=== PATIENT | female | born 1950 | race Caucasian/White ===

== ENCOUNTER 2018-03-08 01:05 | Outpatient (CLI) | payer BC, SELFPAY ==
--- NOTE | 2018-03-08 13:00 | DI.MAMMO_ITS ---
SYMPTOM/DIAGNOSIS: SCREENING, Z12.31 MAMMOGRAMS: Mammograms were interpreted according to the usual protocol including computer analysis with CAD system, tomosynthesis and C view imaging. Comparison is made with exams from [id number]. The breasts are composed of scattered fibroglandular densities, breast density, Category C. No suspicious masses or suspicious microcalcifications are seen. There has been no significant change. IMPRESSION: Category 1B, negative mammogram. Yearly screening mammography is recommended. [facility] ASSESSMENT OF FINDINGS: Negative. Category 1. Patient will receive a letter notifying them of these results. BI-RADS category B. There are scattered areas of fibroglandular density.
== END 2018-03-08 01:25 ==
PROVIDERS: PCP Family Medicine; Visit Provider Family Medicine
DX: Z12.31 Encounter for screening mammogram for malignant neoplasm of breast (principal)
CPT/HCPCS: 77063; 77067

== ENCOUNTER 2018-04-22 01:44 | Outpatient (CLI) | payer BC, SELFPAY ==
[2018-04-22 08:22] LABS: ALT 32 U/L (12-78); AST 26 U/L (15-37); Albumin 3.8 g/dL (3.4-5.0); Alkaline Phosphatase 87 U/L (46-116); Anion Gap 6.6 mmol/L (3-11); BUN 18 mg/dL (7-18); Bilirubin, Total 0.4 mg/dL (0.2-1.0); CO2 30.4 mmol/L (21.0-32.0); CREATININE 0.89 mg/dL (0.55-1.02); Calcium 9.1 mg/dL (8.5-10.1); Chloride 103 mmol/L (98-107); Cholesterol 243 mg/dL (50-200); Glucose 86 mg/dL (70-100); HDL Cholesterol 58 mg/dL (40-60); LDL CHOLESTEROL 154 mg/dL (<100); Potassium 4.1 mmol/L (3.5-5.1); Sodium 140 mmol/L (136-145); Total Protein 7.5 g/dL (6.4-8.2); Triglyceride 99 mg/dL (30-150)
== END 2018-04-22 02:04 ==
PROVIDERS: PCP Family Medicine; Visit Provider Family Medicine
DX: Z00.00 Encounter for general adult medical examination without abnormal findings (principal); E78.5 Hyperlipidemia, unspecified
CPT/HCPCS: 36415; 80053; 80061; 83721

== ENCOUNTER 2018-05-11 11:16 | Emergency (ER) | payer BC, SELFPAY ==
[2018-05-11 11:25] VITALS: BP 115/89; PULSE 83; RESP 22; TEMP 36.7; O2SAT 99
[2018-05-11] MEDS: Normal Saline 1,000 ML 1000 ML IV (11:40)
[2018-05-11 11:43] LABS: Abs Immature Grans 0.03 k/cumm (0.0-0.09); Absolute Basophil Count 0.02 k/cumm (0.0-0.2); Absolute Eosinophil Count 0.01 k/cumm (0.0-0.7); Absolute Monocyte Count 0.41 k/cumm (0.11-0.7); Absolute Neutrophil Count 10.78 k/cumm (1.2-6.7); Basophils % 0.2; Eosinophils % 0.1; HCT 42.3 % (36.0-46.0); HGB 14.7 g/dL (12.0-15.5); Immature Grans % 0.2; Lymphocytes % 6.6; Mean Corp. HGB Concentration 34.8 g/dL (32.0-36.0); Mean Corpuscular Hemoglobin 29.8 pg (27.0-33.0); Mean Corpuscular Volume 85.6 fL (80-95); Mean Platelet Volume 10.2 fL (8.0-11.0); Monocytes % 3.4; Neutrophils % 89.5; Platelet Count 227 x1000/uL (130-400); RBC 4.94 m/cumm (4.00-5.20); RBC Distribution Width 13.4 % (11.7-14.6); White Blood Cell Count 12.05 k/cumm (4.4-10.8)
[2018-05-11] MEDS: Ketorolac 15 MG/ML VIAL IVP (11:45)
[2018-05-11] MEDS: Ondansetron 4 MG/2 ML VIAL IVP (11:48)
[2018-05-11 12:02] LABS: ALT 36 U/L (12-78); AST 37 U/L (15-37); Alkaline Phosphatase 90 U/L (46-116); Anion Gap 12.6 mmol/L (3-11); BUN 24 mg/dL (7-18); Bilirubin, Total 0.5 mg/dL (0.2-1.0); CO2 25.4 mmol/L (21.0-32.0); CREATININE 1.26 mg/dL (0.55-1.02); Calcium 9.9 mg/dL (8.5-10.1); Chloride 101 mmol/L (98-107); Estimated GFR 42.62 (mL/min/1.73m2); Glucose 136 mg/dL (70-100); Lipase 119 U/L (73-393); Potassium 4.1 mmol/L (3.5-5.1); Sodium 139 mmol/L (136-145); Total Protein 8.1 g/dL (6.4-8.2)
[2018-05-11 12:10] LABS: Bilirubin Negative (Negative); Blood Negative (Negative); Clarity Clear; Glucose Negative (Negative); Ketones 15 mg/dL (Negative); Leukocyte Esterase Negative (Negative); Nitrite Negative (Negative); Specific Gravity 1.015 (1.005-1.025); Urobilinogen 0.2 EU/dL (Up TO 0.2); pH 8.5 (5-8)
--- NOTE | 2018-05-11 12:13 | DI.CT_ITS ---
SYMPTOMS/DIAGNOSIS: LEFT LOWER QUADRANT PAIN, ? URETERAL CALCULI VS DIVERTICULA NONCONTRAST CT OF THE ABDOMEN AND PELVIS: There are no prior comparison exams. There is moderate left hydronephrosis. A tiny calcification is seen at the ureterovesical junction measuring 1-2 mm. There is mild left perinephric stranding and mild left renal enlargement. No additional urinary tract calculi are seen. A cyst is noted at the lower pole of the right kidney. The patient is status post hysterectomy. The bladder is unremarkable. Coronary artery calcifications are seen. The lung bases show minimal dependent changes. The liver, gallbladder, spleen, adrenals and pancreas are unremarkable. There is a question of a small hiatal hernia. The aorta is normal in diameter and shows mild calcification. There is a normal quantity of stool. The appendix appears normal. No bowel dilatation or inflammatory changes are seen. There are mild degenerative disc changes in the spine. IMPRESSION: Moderate left hydronephrosis secondary to a 1-2 mm stone at the ureterovesical junction.
--- NOTE | 2018-05-11 13:02 | NUR.NOTE ---
Nursing Note: Patient has a compliant of worsening pain/ pain is returning.
[2018-05-11] MEDS: MORPHine 10 MG/ML VIAL 4 MG IVP (13:21)
--- NOTE | 2018-05-11 14:47 | W.ED.GENAD ---
Discharge Plan Disposition Patient Disposition: HOME Condition: Improving Discharge Details Chief Complaint: Abd Prob Clinical Impression: Left ureteral stone Primary Care Provider: Stephanie House ED Provider: Joe Franz Home Meds and New Rx's Prescriptions: New hydrocodone-acetaminophen 5-325 mg tablet 1 tab PO Q6H PRN (Reason: pain) Qty: 2 RF: 0 Continued multivitamin [Daily Multi-Vitamin] 1 EACH tablet 1 ea PO DAILY Qty: 1 RF: 0 magnesium oxide 250 MG tablet 250 mg PO BID RF: 0 vitamin E (dl, acetate) 400 UNIT capsule 400 unit PO DAILY RF: 0 Fish Oil 1 EACH capsule 1 ea PO DAILY RF: 0 nystatin 15 GM cream 1 gm Topical BID PRNQty: 15 RF: 3 acetaminophen [Tylenol] 325 MG tablet 650 mg PO PRN PRNRF: 0 Discharge Instructions Instructions: Kidney Stones (ED) Additional Instructions: Take acetaminophen/Tylenol or prescribed pain medication as needed for discomfort. Continue to stay well-hydrated and follow-up with urologist as needed for reassessment. Stand Alone Forms: Work Release Referrals: Dave Angel MD [ [facility] STAFF PHYSICIAN] - (Call the office if not improving in the next 24-48 hours) Discharge Data Discharge Date/Time-TO BE ENTERED AT DEPARTURE: 05/11/18 15:12 Medical Decision Making Patient presenting the emergency department for chief complaint of left lower abdominal pain. Patient states mild back pain that precipitated initial pain episode. Patient has significant tenderness to left lower quadrant along with left CVA tenderness. Differential to include ureteral calculi versus diverticulitis. Plan to do labs and CT imaging. Patient given IV fluids, ketorolac pending results. Labs reviewed and show a nonspecific leukocytosis along with decreased renal function which I feel is secondary to possible dehydration. Patient continued to have pain after CT imaging was given for morphine. After CT patient given another bag of IV fluids. CT image shows a small 2 mm ureteral stone at the UVJ. While patient was in emergency department finishing fluids she did have to urinate and passed what appears to be a 2 mm stone. Patient was given limited supply of Vicodin for any further pain control as she still states moderate discomfort. Patient did pass stone she was informed to contact urology if she continued to have discomfort. Close return precautions were discussed. After discussion of diagnosis and plan of care patient and family have no further needs, questions, or concerns and states clear understanding to return to the emergency department for any worsening symptoms. HPI General Mode of arrival: ambulatory. Date/Time Provider Initiated Documentation: 05/11/18 11:23. Limitations to Documentation: no limitations. Information obtained by: patient, family and RN notes reviewed. History of Present Illness described as severe, with intensity rated at 9. Quality is described as sharp, and is localized to the abdomen (LLQ). Patient started experiencing this hour(s) (4) and it has been constant. Patient did receive the following treatments prior to arrival, none Related Data Home Medications Medication Instructions Recorded Confirmed multivitamin [Daily Multi-Vitamin] 1 ea PO DAILY #1 09/21/12 02/23/18 magnesium oxide 250 mg PO BID 11/07/14 02/23/18 vitamin E (dl, acetate) 400 unit PO DAILY 11/07/14 02/23/18 Fish Oil 1 ea PO DAILY 02/03/17 02/23/18 nystatin 1 gm TOPICAL BID PRN #15 ml 02/03/17 02/23/18 acetaminophen [Tylenol] 650 mg PO PRN PRN 02/27/17 02/23/18 hydrocodone-acetaminophen 1 tab PO Q6H PRN #2 tab 05/11/18 Previous Rx's Medication Instructions Recorded hydrocodone-acetaminophen 1 tab PO Q6H PRN #2 tab 05/11/18 Allergies Allergy/AdvReac Type Severity Reaction Status Date / Time penicillin G Allergy Intermediate RASH Unverified 02/23/18 09:17 latex Allergy Unverified 02/23/18 09:17 General Stated Complaint: Abd Prob JUN: 2 Review of Systems Constitutional Reports chills, Denies fever(s) and Reports poor appetite Cardiovascular Denies chest pain and Denies dyspnea Respiratory Denies cough and Denies dyspnea Gastrointestinal Reports as per HPI, Reports abdominal pain, Denies melena, Denies change in bowel habits, Denies constipation, Denies diarrhea, Reports nausea and Reports vomiting Genitourinary Denies hematuria, Denies urinary incontinence, Denies urinary hesitancy and Denies urinary urgency Integumentary/Breasts Denies rash [facility] Medical History Skin lesion (Chronic 02/03/17) Other hemorrhoids (Chronic 09/24/17) Positive test for human papillomavirus (HPV) (Resolved) Routine gynecological examination (Resolved) DAVIAN II (cervical intraepithelial neoplasia II) Hyperlipidemia Surgical History Cervical Conization/LEEP (06/04/16) Dilation and curettage Vaginal hysterectomy (06/25/16) Family History Mother Substance abuse Essential hypertension Neoplasm Father Essential hypertension Heart disease Hyperlipidemia Brother Essential hypertension Hyperlipidemia Stroke Maternal Grandfather Heart disease Paternal Grandfather Heart disease Maternal Grandmother Heart disease Paternal Grandmother Diabetes Stroke Sister Substance abuse Neoplasm Brother No problems noted. Son No problems noted. Social History highest education level completed: Master's degree current occupational status: employed current occupation: [employer] frequency: 3-4 times per week duration: 45-60 minutes/day Smoking and Tabacco status: Former Tobacco Use alcohol intake: never substance use type: does not use francesca/congregational: Denominational special francesca needs: No Exam Const General: cooperative Orientation: alert, awake and oriented x3 Resp Effort & Inspection: normal respiratory effort and able to speak in complete sentences Auscultation: clear to auscultation bilaterally Cardio Rate: regular rate Rhythm: regular rhythm Heart Sounds: S1 normal and S2 normal GI Palpation: soft, no hepatosplenomegaly, not firm, no guarding, no masses, no pulsatile masses, not rigid, no splenomegaly and tender in the LLQ Auscultation: normal bowel sounds Back/Spine/Pelvis Back: CVA tenderness (left) Neuro General: alert, awake, oriented x3, gait normal and moves all extremities Course Vital Signs Temperature 36.7 C 05/11/18 11:25 Pulse 83 05/11/18 11:25 Respiratory Rate 22 05/11/18 11:25 Blood Pressure 115/89 05/11/18 11:25 Pulse Oximetry 99 05/11/18 11:25 Temperature 36.7 C 05/11/18 11:25 Temperature Source Temporal Artery Scan 05/11/18 11:25 Pulse 83 05/11/18 11:25 Respiratory Rate 22 05/11/18 11:25 Respiratory Effort Non-Labored 05/11/18 11:53 Blood Pressure 115/89 05/11/18 11:25 Blood Pressure Position Supine 05/11/18 11:25 Pulse Oximetry 99 05/11/18 11:25 Oxygen Delivery Method Room Air 05/11/18 11:25 Oxygen Flow Rate 0 05/11/18 11:25 Pain Level 9 05/11/18 11:25 Lab/Test Results Lab/Test Results: Laboratory Tests Range/Units 05/11/18 05/11/18 05/11/18 11:30 11:30 12:03 WBC (4.4-10.8) k/cumm 12.05 H RBC (4.00-5.20) m/cumm 4.94 Hgb (12.0-15.5) g/dL 14.7 Hct (36.0-46.0) % 42.3 MCV (80-95) fL 85.6 MCH (27.0-33.0) pg 29.8 MCHC (32.0-36.0) g/dL 34.8 RDW (11.7-14.6) % 13.4 Plt Count (130-400) x1000/uL 227 MPV (8.0-11.0) fL 10.2 Immature Gran % 0.2 Neutrophils % 89.5 Lymphocytes % 6.6 Monocytes % 3.4 Eosinophils % 0.1 Basophils % 0.2 Absolute Neutrophils (1.2-6.7) k/cumm 10.78 H Absolute Lymphocytes (1.2-3.4) k/cumm 0.80 L Absolute Monocytes (0.11-0.7) k/cumm 0.41 Absolute Eosinophils (0.0-0.7) k/cumm 0.01 Absolute Basophils (0.0-0.2) k/cumm 0.02 Sodium (136-145) mmol/L 139 Potassium (3.5-5.1) mmol/L 4.1 Chloride (98-107) mmol/L 101 Carbon Dioxide (21.0-32.0) mmol/L 25.4 Anion Gap (3-11) mmol/L 12.6 H BUN (7-18) mg/dL 24 H Creatinine (0.55-1.02) mg/dL 1.26 H Estimated GFR/1.73 m2 (mL/min/1.73m2) 42.62 Glucose (70-100) mg/dL 136 H Calcium (8.5-10.1) mg/dL 9.9 Total Bilirubin (0.2-1.0) mg/dL 0.5 AST (15-37) U/L 37 ALT (12-78) U/L 36 Alkaline Phosphatase (46-116) U/L 90 Total Protein (6.4-8.2) g/dL 8.1 Albumin (3.4-5.0) g/dL 4.0 Lipase (73-393) U/L 119 Urine Color (Yellow) Yellow Urine Clarity Clear Urine pH (5-8) 8.5 H Ur Specific [place] (1.005-1.025) 1.015 Urine Protein (Negative) mg/dL Negative Urine Ketones (Negative) mg/dL 15 H Urine Blood (Negative) Negative Urine Nitrite (Negative) Negative Urine Bilirubin (Negative) Negative Urine Urobilinogen (Up TO 0.2) EU/dL 0.2 Ur Leukocyte Esterase (Negative) Negative Urine Glucose (Negative) mg/dL Negative
--- NOTE | 2018-05-11 14:59 | ED.GENADUL_ITS ---
Discharge Plan Disposition Patient Disposition: HOME Condition: Improving Discharge Details Chief Complaint: Abd Prob Clinical Impression: Left ureteral stone Primary Care Provider: Stephanie House ED Provider: Joe Franz Home Meds and New Rx's Prescriptions: New hydrocodone-acetaminophen 5-325 mg tablet 1 tab PO Q6H PRN (Reason: pain) Qty: 2 RF: 0 Continued multivitamin [Daily Multi-Vitamin] 1 EACH tablet 1 ea PO DAILY Qty: 1 RF: 0 magnesium oxide 250 MG tablet 250 mg PO BID RF: 0 vitamin E (dl, acetate) 400 UNIT capsule 400 unit PO DAILY RF: 0 Fish Oil 1 EACH capsule 1 ea PO DAILY RF: 0 nystatin 15 GM cream 1 gm Topical BID PRNQty: 15 RF: 3 acetaminophen [Tylenol] 325 MG tablet 650 mg PO PRN PRNRF: 0 Discharge Instructions Instructions: Kidney Stones (ED) Additional Instructions: Take acetaminophen/Tylenol or prescribed pain medication as needed for discomfort. Continue to stay well-hydrated and follow-up with urologist as needed for reassessment. Stand Alone Forms: Work Release Referrals: Dave Angel MD [ [facility] STAFF PHYSICIAN] - (Call the office if not improving in the next 24-48 hours) Discharge Data Discharge Date/Time-TO BE ENTERED AT DEPARTURE: 05/11/18 15:12 Medical Decision Making Patient presenting the emergency department for chief complaint of left lower abdominal pain. Patient states mild back pain that precipitated initial pain episode. Patient has significant tenderness to left lower quadrant along with left CVA tenderness. Differential to include ureteral calculi versus diverticulitis. Plan to do labs and CT imaging. Patient given IV fluids, ketorolac pending results. Labs reviewed and show a nonspecific leukocytosis along with decreased renal function which I feel is secondary to possible dehydration. Patient continued to have pain after CT imaging was given for morphine. After CT patient given another bag of IV fluids. CT image shows a small 2 mm ureteral stone at the UVJ. While patient was in emergency department finishing fluids she did have to urinate and passed what appears to be a 2 mm stone. Patient was given limited supply of Vicodin for any further pain control as she still states moderate discomfort. Patient did pass stone she was informed to contact urology if she continued to have discomfort. Close return precautions were discussed. After discussion of diagnosis and plan of care patient and family have no further needs, questions, or concerns and states clear understanding to return to the emergency department for any worsening symptoms. HPI General Mode of arrival: ambulatory . Date/Time Provider Initiated Documentation: 05/11/18 11:23 . Limitations to Documentation: no limitations . Information obtained by: patient, family and RN notes reviewed . History of Present Illness described as severe, with intensity rated at 9. Quality is described as sharp, and is localized to the abdomen (LLQ). Patient started experiencing this hour(s) (4) and it has been constant. Patient did receive the following treatments prior to arrival, none Related Data Home Medications Medication Instructions Recorded Confirmed multivitamin [Daily Multi-Vitamin] 1 ea PO DAILY #1 09/21/12 02/23/18 magnesium oxide 250 mg PO BID 11/07/14 02/23/18 vitamin E (dl, acetate) 400 unit PO DAILY 11/07/14 02/23/18 Fish Oil 1 ea PO DAILY 02/03/17 02/23/18 nystatin 1 gm TOPICAL BID PRN #15 ml 02/03/17 02/23/18 acetaminophen [Tylenol] 650 mg PO PRN PRN 02/27/17 02/23/18 hydrocodone-acetaminophen 1 tab PO Q6H PRN #2 tab 05/11/18 Previous Rx's Medication Instructions Recorded hydrocodone-acetaminophen 1 tab PO Q6H PRN #2 tab 05/11/18 Allergies Allergy/AdvReac Type Severity Reaction Status Date / Time penicillin G Allergy Intermediate RASH Unverified 02/23/18 09:17 latex Allergy Unverified 02/23/18 09:17 General Stated Complaint: Abd Prob JUN: 2 Review of Systems Constitutional Reports chills, Denies fever(s) and Reports poor appetite Cardiovascular Denies chest pain and Denies dyspnea Respiratory Denies cough and Denies dyspnea Gastrointestinal Reports as per HPI, Reports abdominal pain, Denies melena, Denies change in bowel habits, Denies constipation, Denies diarrhea, Reports nausea and Reports vomiting Genitourinary Denies hematuria, Denies urinary incontinence, Denies urinary hesitancy and Denies urinary urgency Integumentary/Breasts Denies rash [facility] Medical History Skin lesion (Chronic 02/03/17) Other hemorrhoids (Chronic 09/24/17) Positive test for human papillomavirus (HPV) (Resolved) Routine gynecological examination (Resolved) DAVIAN II (cervical intraepithelial neoplasia II) Hyperlipidemia Surgical History Cervical Conization/LEEP (06/04/16) Dilation and curettage Vaginal hysterectomy (06/25/16) Family History Mother Substance abuse Essential hypertension Neoplasm Father Essential hypertension Heart disease Hyperlipidemia Brother Essential hypertension Hyperlipidemia Stroke Maternal Grandfather Heart disease Paternal Grandfather Heart disease Maternal Grandmother Heart disease Paternal Grandmother Diabetes Stroke Sister Substance abuse Neoplasm Brother No problems noted. Son No problems noted. Social History highest education level completed: Master's degree current occupational status: employed current occupation: [email or web address] frequency: 3-4 times per week duration: 45-60 minutes/day Smoking and Tabacco status: Former Tobacco Use alcohol intake: never substance use type: does not use francesca/christianity: Latter-Day special francesca needs: No Exam Const General: cooperative Orientation: alert, awake and oriented x3 Resp Effort & Inspection: normal respiratory effort and able to speak in complete sentences Auscultation: clear to auscultation bilaterally Cardio Rate: regular rate Rhythm: regular rhythm Heart Sounds: S1 normal and S2 normal GI Palpation: soft, no hepatosplenomegaly, not firm, no guarding, no masses, no pulsatile masses, not rigid, no splenomegaly and tender in the LLQ Auscultation: normal bowel sounds Back/Spine/Pelvis Back: CVA tenderness (left) Neuro General: alert, awake, oriented x3, gait normal and moves all extremities Course Vital Signs Temperature 36.7 C 05/11/18 11:25 Pulse 83 05/11/18 11:25 Respiratory Rate 22 05/11/18 11:25 Blood Pressure 115/89 05/11/18 11:25 Pulse Oximetry 99 05/11/18 11:25 Temperature 36.7 C 05/11/18 11:25 Temperature Source Temporal Artery Scan 05/11/18 11:25 Pulse 83 05/11/18 11:25 Respiratory Rate 22 05/11/18 11:25 Respiratory Effort Non-Labored 05/11/18 11:53 Blood Pressure 115/89 05/11/18 11:25 Blood Pressure Position Supine 05/11/18 11:25 Pulse Oximetry 99 05/11/18 11:25 Oxygen Delivery Method Room Air 05/11/18 11:25 Oxygen Flow Rate 0 05/11/18 11:25 Pain Level 9 05/11/18 11:25 Lab/Test Results Lab/Test Results: Laboratory Tests Range/Units 05/11/18 05/11/18 05/11/18 11:30 11:30 12:03 WBC (4.4-10.8) k/cumm 12.05 H RBC (4.00-5.20) m/cumm 4.94 Hgb (12.0-15.5) g/dL 14.7 Hct (36.0-46.0) % 42.3 MCV (80-95) fL 85.6 MCH (27.0-33.0) pg 29.8 MCHC (32.0-36.0) g/dL 34.8 RDW (11.7-14.6) % 13.4 Plt Count (130-400) x1000/uL 227 MPV (8.0-11.0) fL 10.2 Immature Gran % 0.2 Neutrophils % 89.5 Lymphocytes % 6.6 Monocytes % 3.4 Eosinophils % 0.1 Basophils % 0.2 Absolute Neutrophils (1.2-6.7) k/cumm 10.78 H Absolute Lymphocytes (1.2-3.4) k/cumm 0.80 L Absolute Monocytes (0.11-0.7) k/cumm 0.41 Absolute Eosinophils (0.0-0.7) k/cumm 0.01 Absolute Basophils (0.0-0.2) k/cumm 0.02 Sodium (136-145) mmol/L 139 Potassium (3.5-5.1) mmol/L 4.1 Chloride (98-107) mmol/L 101 Carbon Dioxide (21.0-32.0) mmol/L 25.4 Anion Gap (3-11) mmol/L 12.6 H BUN (7-18) mg/dL 24 H Creatinine (0.55-1.02) mg/dL 1.26 H Estimated GFR/1.73 m2 (mL/min/1.73m2) 42.62 Glucose (70-100) mg/dL 136 H Calcium (8.5-10.1) mg/dL 9.9 Total Bilirubin (0.2-1.0) mg/dL 0.5 AST (15-37) U/L 37 ALT (12-78) U/L 36 Alkaline Phosphatase (46-116) U/L 90 Total Protein (6.4-8.2) g/dL 8.1 Albumin (3.4-5.0) g/dL 4.0 Lipase (73-393) U/L 119 Urine Color (Yellow) Yellow Urine Clarity Clear Urine pH (5-8) 8.5 H Ur Specific [place] (1.005-1.025) 1.015 Urine Protein (Negative) mg/dL Negative Urine Ketones (Negative) mg/dL 15 H Urine Blood (Negative) Negative Urine Nitrite (Negative) Negative Urine Bilirubin (Negative) Negative Urine Urobilinogen (Up TO 0.2) EU/dL 0.2 Ur Leukocyte Esterase (Negative) Negative Urine Glucose (Negative) mg/dL Negative
[2018-05-11 15:10] VITALS: BP 142/77; PULSE 74; RESP 16; TEMP 36.8; O2SAT 95
--- NOTE | 2018-05-14 07:59 | PDOC.ERCMPRO ---
Care Management Progress Note 05/14-Riley TAYLOR requested assistance with a Urology f/u for a 2mm stone @ [facility]. Referral faxed to [facility] this am.
== END 2018-05-11 15:12 | disposition home or self-care (01) ==
PROVIDERS: Emergency Provider Nurse Practitioner Family; PCP Family Medicine
DX: N20.1 Calculus of ureter (principal)
CPT/HCPCS: 36415; 80053; 83690; 96361; 96374; 96375; 99284; 74176; 81003; 85025; J1885; J2270; J2405

== ENCOUNTER 2018-10-19 10:09 | Outpatient (CLI) | payer MEDICARE, OTHER, SELFPAY ==
--- NOTE | 2018-10-19 10:03 | DI.CT_ITS ---
SYMPTOM/DIAGNOSIS: BLACKED OUT, NOW HEADACHES R55, SYNCOPE AND COLLAPSE CRANIAL CT (WITHOUT CONTRAST): 10/[address] was performed. The ventricular system is normal in appearance. There is no evidence of an intracranial mass lesion. There is no evidence of a subdural or epidural hematoma. No focal areas of decreased attenuation are seen. CONCLUSION: Normal noncontrast Cranial CT.
[2018-10-19 10:42] LABS: HGB 14.7 g/dL (12.0-15.5); Mean Corp. HGB Concentration 33.4 g/dL (32.0-36.0); Mean Corpuscular Hemoglobin 29.4 pg (27.0-33.0); Mean Platelet Volume 10.1 fL (8.0-11.0); Platelet Count 221 x1000/uL (130-400); RBC Distribution Width 13.1 % (11.7-14.6); White Blood Cell Count 4.96 k/cumm (4.4-10.8)
[2018-10-19 11:37] LABS: ALT 34 U/L (12-78); AST 25 U/L (15-37); Albumin 3.8 g/dL (3.4-5.0); Alkaline Phosphatase 93 U/L (46-116); Anion Gap 7.5 mmol/L (3-11); BUN 16 mg/dL (7-18); Bilirubin, Total 0.3 mg/dL (0.2-1.0); CO2 30.5 mmol/L (21.0-32.0); CREATININE 0.86 mg/dL (0.55-1.02); Calcium 9.1 mg/dL (8.5-10.1); Chloride 104 mmol/L (98-107); Glucose 90 mg/dL (70-100); Potassium 4.5 mmol/L (3.5-5.1); Sodium 142 mmol/L (136-145); TSH (W/Ref FT4) 1.19 uIU/mL (0.36-3.74); Total Protein 7.4 g/dL (6.4-8.2)
== END 2018-10-19 10:29 ==
PROVIDERS: PCP Family Medicine; Visit Provider Family Medicine
DX: R55 Syncope and collapse (principal); R51 Headache; R53.83 Other fatigue
CPT/HCPCS: 36415; 80053; 85027; 70450; 84443

== ENCOUNTER 2018-10-27 00:47 | Outpatient (CLI) | payer MEDICARE, OTHER, SELFPAY ==
--- NOTE | 2018-10-27 06:36 | DI.US_ITS ---
SYMPTOM/DIAGNOSIS: DIZZINESS WITH HEAD MOTION, R55 BILATERAL DUPLEX CAROTID ULTRASOUND: Duplex evaluation of the carotid circulation was performed according to the usual protocol. There is mild visible atheromatous plaque in carotid bifurcation and internal carotid artery on the right and in the internal carotid artery on the left. Flow velocities and common internal and external carotid arteries are within normal limits bilaterally. There is bilateral antegrade vertebral flow. CONCLUSION: No evidence of a hemodynamically significant carotid stenosis.
--- NOTE | 2018-10-27 07:30 | MERGE_ITS ---
*[facility]* *[facility]* [address] [place] [address] Date of study: 10/27/2018 Transthoracic Echocardiography M-mode, complete 2D, complete spectral Doppler, and color Doppler *STUDY CONCLUSIONS* Summary: 1. Left ventricle: The cavity size was normal. Wall thickness was normal. Systolic function was hyperdynamic. The estimated ejection fraction was 65-70%. There was no dynamic obstruction. Wall motion was normal; there were no regional wall motion abnormalities. 2. Right ventricle: The cavity size was normal. Wall thickness was normal. Systolic function was normal. *PATIENT PRESENTATION* Height: 160cm (63in ) S/D Pressure: 102 / 69 Weight: 53.1kg (116.8lb ) BSA: 1.54m^2 Test start time: 07:40 AM. Test stop time: 08:40 AM. CONSULTING Stephanie House ORDERING Stephanie House REFERRING Stephanie House PERFORMING Unknown [employer] MACHINIST RT José Miguel (R)(CT), [facility] *PROCEDURE DATA* Procedure information: The patient was identified by two identifiers. This study was interpreted by [facility]. Pertinent images and digital data are archived for permanent storage and are available for subsequent review. No prior study was available for comparison. Study status: Routine. Transthoracic echocardiography. M-mode, complete 2D, complete spectral Doppler, and color Doppler. A Transthoracic Echocardiogram was performed. Scanning was performed from the parasternal, apical, subcostal, and suprasternal notch acoustic windows. Images were obtained using an [id number] cardiac ultrasound machine. Image quality was adequate. Study completion: The patient tolerated the procedure well. History: PMH: Syncope and collapse. R55. Black out with exertion. Vertigo. Dizziness. *CARDIAC ANATOMY* Left ventricle: The cavity size was normal. Wall thickness was normal. Systolic function was hyperdynamic. The estimated ejection fraction was 65-70%. There was no dynamic obstruction. Wall motion was normal; there were no regional wall motion abnormalities. Diastolic parameters were not diagnostic. Aortic valve: Trileaflet; normal thickness leaflets. Mobility was not restricted. Doppler: Transvalvular velocity was within the normal range. There was no stenosis. There was no significant regurgitation. VTI ratio of LVOT to aortic valve: 0.68. Valve area (VTI): 1.9cm^2. Indexed valve area (VTI): 1.2cm^2/m^2. Peak velocity ratio of LVOT to aortic valve: 0.69. Valve area (Vmax): 1.9cm^2. Indexed valve area (Vmax): 1.2cm^2/m^2. Mean velocity ratio of LVOT to aortic valve: 0.69. Valve area (Vmean): 1.9cm^2. Indexed valve area (Vmean): 1.2cm^2/m^2. Mean gradient (S): 5.1mm Hg. Peak gradient (S): 9.6mm Hg. Aorta: Aortic root: The aortic root was normal in size. Ascending aorta: The ascending aorta was normal in size. Mitral valve: Structurally normal valve. Mobility was not restricted. Doppler: Transvalvular velocity was within the normal range. There was no evidence for stenosis. There was no significant regurgitation. Valve area by pressure half-time: 3.5cm^2. Indexed valve area by pressure half-time: 2.3cm^2/m^2. Peak gradient (D): 2.3mm Hg. Left atrium: The atrium was normal in size. Right ventricle: The cavity size was normal. Wall thickness was normal. Systolic function was normal. Pulmonic valve: Structurally normal valve. Doppler: Transvalvular velocity was within the normal range. There was no evidence for stenosis. There was no significant regurgitation. Peak gradient (S): 2.2mm Hg. Tricuspid valve: Structurally normal valve. Doppler: Transvalvular velocity was within the normal range. There was no evidence for stenosis. There was trivial regurgitation. Pulmonary artery: Pulmonary systolic pressure was within the normal range, in the range of 20mm Hg to 25mm Hg. Right atrium: The atrium was normal in size. Pericardium: There was no pericardial effusion. Systemic veins: Inferior vena cava: Well visualized. The vessel was patent and normal in size. The respirophasic diameter changes were in the normal range (greater than or equal to 50%). Baseline ECG: Normal sinus rhythm. Measurements Left ventricle Value Reference LV ID, ED, PLAX 4.0 cm 3.5 - 6.0 LV ID, ES, PLAX 2.3 cm 2.1 - 4.0 LV PW thickness, ED, PLAX 0.9 cm LV end-diastolic volume, 1-p A2C 55 ml LV ejection fraction, 1-p A2C 65 % LV end-diastolic volume, 1-p A4C 58 ml LV ejection fraction, 1-p A4C 65 % LV e', lateral 0.071 m/sec LV E/e', lateral 11 LV e', medial 0.061 m/sec LV E/e', medial 12 LV e', average 0.066 m/sec LV E/e', average 12 Ventricular septum Value Reference IVS thickness, ED, PLAX 0.8 cm LVOT Value Reference LVOT ID, A-P 1.9 cm LVOT area 2.7 cm^2 LVOT peak velocity, S 1.07 m/sec LVOT mean velocity, S 0.74 m/sec LVOT VTI, S 22.6 cm LVOT peak gradient, S 4.6 mm Hg LVOT mean gradient, S 2.5 mm Hg Stroke volume (SV), LVOT DP 61 ml Stroke index (SV/bsa), LVOT DP 40 ml/m^2 Aortic valve Value Reference Aortic valve peak velocity, S 1.6 m/sec Aortic valve mean velocity, S 1.1 m/sec Aortic valve VTI, S 33.0 cm Aortic mean gradient, S 5.1 mm Hg Aortic peak gradient, S 9.6 mm Hg VTI ratio, LVOT/AV 0.68 Aortic valve area, VTI 1.9 cm^2 Velocity ratio, peak, LVOT/AV 0.69 Aortic valve area, peak velocity 1.9 cm^2 Velocity ratio, mean, LVOT/AV 0.69 Aortic valve area, mean velocity 1.9 cm^2 Aortic valve area/bsa, mean velocity 1.2 cm^2/m^2 Aorta Value Reference Aortic root ID, ED 2.6 cm Ascending aorta ID, A-P, S 2.8 cm Left atrium Value Reference LA ID, A-P, ES 3.0 cm LA ID/bsa, A-P 2.0 cm/m^2 <=2.2 LA volume/bsa, ES, 1-p A4C 21 ml/m^2 LA volume, ES, 2-p 35 ml LA volume/bsa, ES, 2-p 23 ml/m^2 LA/aortic root ratio 1.16 Mitral valve Value Reference Mitral E-wave peak velocity 0.76 m/sec Mitral A-wave peak velocity 0.72 m/sec Mitral deceleration time 217 ms 150 - 230 Mitral pressure half-time 63 ms Mitral peak gradient, D 2.3 mm Hg Mitral E/A ratio, peak 1.06 Mitral valve area, PHT, DP 3.5 cm^2 Pulmonary veins Value Reference Pulmonary vein peak velocity, S 0.69 m/sec Pulmonary vein peak velocity, D 0.45 m/sec Pulmonary vein velocity ratio, peak, 1.54 S/D Pulmonary vein A-wave reversal peak 0.52 m/sec velocity Pulmonary vein A-wave reversal 155 ms duration Tricuspid valve Value Reference Tricuspid regurg peak velocity 2.1 m/sec Tricuspid peak RV-RA gradient 18 mm Hg Right atrium Value Reference RA area, ES, A4C 13.3 cm^2 8.3 - 19.5 Pulmonic valve Value Reference Pulmonic peak gradient, S 2.2 mm Hg Legend: (L) and (H) lui values outside specified reference range. I have personally reviewed the images and have reviewed and edited the reported findings. Electronically signed by Gurinder Oliva 10/27/2018 10:44
== END 2018-10-27 01:07 ==
PROVIDERS: PCP Family Medicine; Visit Provider Family Medicine
DX: R55 Syncope and collapse (principal); R42 Dizziness and giddiness; I65.23 Occlusion and stenosis of bilateral carotid arteries
CPT/HCPCS: 93306; 93880

== ENCOUNTER 2018-10-28 02:30 | Outpatient (CLI) | payer MEDICARE, OTHER, SELFPAY | END 2018-10-28 02:50 | PROVIDERS: PCP Family Medicine; Visit Provider Family Medicine | DX: R06.02 Shortness of breath (principal); I49.1 Atrial premature depolarization; I47.1 Supraventricular tachycardia; I49.3 Ventricular premature depolarization | CPT/HCPCS: 93225 ==

== ENCOUNTER 2018-10-31 08:22 | Outpatient (CLI) | payer MEDICARE, OTHER, SELFPAY ==
--- NOTE | 2018-11-01 11:22 | HOLTER_ITS ---
HOLTER MONITOR DATE OF DICTATION November 01, 2018 48 hour study. Baseline rhythm sinus. Rare single PAC. 1 burst SVT, 5 beat duration at 135 beats per minute. No atrial fibrillation. Rare single PVC. No VT. No bradycardia. Nocturnal heart rates as low as 55 beats per minute, sinus bradycardia. No symptoms. Average heart rate 72 beats per minute, range 55 - 104 beats per minute. Chang Wallace M.D. Ursula T - 11/01/18
== END 2018-10-31 08:42 ==
PROVIDERS: PCP Family Medicine; Visit Provider Family Medicine
DX: I49.1 Atrial premature depolarization (principal); I47.1 Supraventricular tachycardia; I49.3 Ventricular premature depolarization; R00.1 Bradycardia, unspecified
CPT/HCPCS: 93226

== ENCOUNTER 2018-11-01 10:24 | Outpatient (CLI) | payer MEDICARE, OTHER, SELFPAY | END 2018-11-01 10:44 | PROVIDERS: PCP Family Medicine; Referring Provider Family Medicine; Visit Provider Internal Medicine Interventional Cardiology | DX: R06.02 Shortness of breath (principal); I49.1 Atrial premature depolarization; I47.1 Supraventricular tachycardia; I49.3 Ventricular premature depolarization; R00.1 Bradycardia, unspecified | CPT/HCPCS: 93227 ==

== ENCOUNTER 2019-07-12 10:34 | Outpatient (CLI) | payer MEDICARE, OTHER, SELFPAY ==
--- NOTE | 2019-07-12 14:00 | DI.RAD_ITS ---
EXAM: XR SHOULDER LT COMPLETE 2+V CLINICAL HISTORY: fell, pain in left shoulder,m25.512 TECHNIQUE: 2D digital imaging was performed. COMPARISON: No exams were available for comparison FINDINGS: The AC joint is not widened. There is minimal spurring at the undersurface of the acromion. Angelita l head is normally positioned. No tendon or joint space calcifications are seen. There are minimal degenerative changes glenohumeral joint. IMPRESSION: Minimal degenerative changes.
== END 2019-07-12 10:54 ==
PROVIDERS: PCP Family Medicine; Visit Provider Family Medicine
DX: M25.512 Pain in left shoulder (principal); M19.012 Primary osteoarthritis, left shoulder
CPT/HCPCS: 73030

== ENCOUNTER 2019-08-30 01:20 | Outpatient (CLI) | payer MEDICARE, OTHER, SELFPAY ==
[2019-08-30 08:00] LABS: Calculated LDL 217 mg/dL (<100); Cholesterol 300 mg/dL (<200); HDL Cholesterol 62 mg/dL (40-60); Triglyceride 108 mg/dL (<150)
== END 2019-08-30 01:40 ==
PROVIDERS: PCP Family Medicine; Visit Provider Family Medicine
DX: E78.5 Hyperlipidemia, unspecified (principal)
CPT/HCPCS: 36415; 80061

== ENCOUNTER 2019-09-20 01:42 | Outpatient (CLI) | payer MEDICARE, OTHER, SELFPAY ==
--- NOTE | 2019-09-20 07:57 | DI.DEXA_ITS ---
EXAM: XR DEXA BONE DENSITY W/WO HEIDI CLINICAL HISTORY: osteoporosis,m81.0 TECHNIQUE: COMPARISON: No exams were available for comparison FINDINGS: DEXA scan was performed according to the usual protocol. Findings for left hip scanning are T-score -2.1 with left femoral neck T-score -2.3. Prior study of May 26 9 showed left hip T-score -1.0. Lumbar spine scanning shows T-score -1.9. Prior scan of May 26 9 showed lumbar T-score -1.3. Left forearm scanning shows T-score -3.5. IMPRESSION: Findings consistent with osteoporosis according to the WHO criteria. The lateral vertebral scanogram shows no evidence of a vertebral compression fracture.
--- NOTE | 2019-09-20 07:57 | DI.MAMMO_ITS ---
EXAM: MAMMO SCREENING CLINICAL HISTORY: screening.Z12.39 TECHNIQUE: Mammograms were interpreted according to the usual protocol including computer analysis w Astro CAD system, tomosynthesis and C-view imaging. COMPARISON: FINDINGS: The breasts are heterogeneously dense. No dominant mass or clumped microcalcification is identified in either breast. The current examination is compared with previous examinations including February 2018 and there has been no gross interval change in appearance comparison with the previous studies. IMPRESSION: No specific evidence of malignancy at this time. Routine screening examinations are yearly intervals in this age group according to the ACS ACR guidelines. BI-RADS Category 1 - Negative Breast Density - Category C - Heterogeneously dense
== END 2019-09-20 02:02 ==
PROVIDERS: PCP Family Medicine; Visit Provider Family Medicine
DX: Z12.31 Encounter for screening mammogram for malignant neoplasm of breast (principal); M81.0 Age-related osteoporosis without current pathological fracture; M85.88 Other specified disorders of bone density and structure, other site
CPT/HCPCS: 77063; 77067; 77080

== ENCOUNTER 2020-02-07 12:00 | Outpatient (CLI) | payer MEDICARE, OTHER, SELFPAY ==
--- NOTE | 2020-02-07 15:30 | DI.US_ITS ---
EXAM: US LOWER EXTREMITY VENOUS LT CLINICAL HISTORY: left left painful lump noted medially r/o vascular, M79.662, M79.89. TECHNIQUE: Lower extremity venous ultrasound performed using grayscale, color-flow, and spectral Dop pler analysis. COMPARISON: No exams were available for comparison FINDINGS: The common femoral, femoral and popliteal veins demonstrate normal compressibility, augmentation, and color Doppler. The posterior tibial veins are patent. The saphenous vein appears free of thrombus. No Mcdermott's cyst or hematoma is seen. There is a palpable abnormality in the distal medial thigh whic h appears to correspond to a bony prominence. Plain films could be performed for further evaluation. IMPRESSION: No evidence of DVT. DATA REPOSITORY:
--- NOTE | 2020-02-07 16:31 | DI.VRAD_ITS ---
PROCEDURE INFORMATION: Exam: US Duplex Left Lower Extremity Veins, Limited Exam date and time: 02/07/2020 4:22 PM Age: 69 years old Clinical indication: Pain; Leg, lower; Patient HX: Atraumatic left leg lump TECHNIQUE: Imaging protocol: Real-time Duplex ultrasound of the Left Lower Extremity with 2-D rivera scale, color Doppler flow and spectral waveform analysis with image documentation. Limited exam focused on the left lower extremity veins. COMPARISON: No relevant prior studies available. FINDINGS: Left deep veins: Unremarkable. The common femoral, femoral, proximal profunda femoral and popliteal veins are patent without thrombus. Normal Doppler waveforms. Normal compressibility and/or augmentation response. Left superficial veins: Unremarkable. Saphenofemoral junction is patent without thrombus. Soft tissues: Palpable abnormality corresponds to bony abnormality on the ultrasound IMPRESSION: No evidence of deep vein thrombosis. Dictated and Authenticated by: Galilea Bravo MD. Ordering:MARY Jordan MD
== END 2020-02-07 12:20 ==
PROVIDERS: PCP Family Medicine; Visit Provider Physician Assistant
DX: M79.662 Pain in left lower leg (principal); M79.89 Other specified soft tissue disorders
CPT/HCPCS: 93971

== ENCOUNTER 2020-02-14 04:34 | Outpatient (CLI) | payer MEDICARE, OTHER, SELFPAY ==
[2020-02-14 08:38] LABS: Calculated LDL 187 mg/dL (<100); Cholesterol 280 mg/dL (<200); HDL Cholesterol 67 mg/dL (40-60); Triglyceride 132 mg/dL (<150)
== END 2020-02-14 04:54 ==
PROVIDERS: PCP Family Medicine; Visit Provider Family Medicine
DX: E78.5 Hyperlipidemia, unspecified (principal)
CPT/HCPCS: 36415; 80061

== ENCOUNTER 2020-08-17 04:04 | Outpatient (CLI) | payer MEDICARE, OTHER, SELFPAY ==
[2020-08-17 11:06] LABS: ALT 29 U/L (14-59); AST 23 U/L (15-37); Albumin 3.8 g/dL (3.4-5.0); Alkaline Phosphatase 106 U/L (46-116); Anion Gap 7.9 mmol/L (3-11); BUN 14 mg/dL (7-18); Bilirubin, Total 0.5 mg/dL (0.2-1.0); CO2 29.1 mmol/L (21.0-32.0); CREATININE 0.9 mg/dL (0.55-1.02); Calcium 9.3 mg/dL (8.5-10.1); Calculated LDL 128 mg/dL (<100); Chloride 105 mmol/L (98-107); Cholesterol 210 mg/dL (<200); Glucose 80 mg/dL (74-106); HDL Cholesterol 58 mg/dL (40-60); Sodium 142 mmol/L (136-145); Total Protein 7.3 g/dL (6.4-8.2); Triglyceride 122 mg/dL (<150)
== END 2020-08-17 04:05 | disposition home or self-care (01) ==
LOC: LBO 04:04
PROVIDERS: PCP Family Medicine; Visit Provider Family Medicine
DX: E78.5 Hyperlipidemia, unspecified (principal)
CPT/HCPCS: 36415; 80053; 80061

== ENCOUNTER 2021-05-01 10:44 | Outpatient (CLI) | payer MEDICARE, SELFPAY ==
--- NOTE | 2021-05-01 10:14 | DI.RAD_ITS ---
Exam(s) XR CHEST 2V PA LATERAL EXAM: XR CHEST 2V PA LATERAL CLINICAL HISTORY: H/O COVID, ABSENT BREATH SOUNDS LT,F/U PNEUMONIA POST COVID,? STATUS TECHNIQUE: 2D digital imaging was performed. COMPARISON: CR XR SHOULDER LT COMPLETE 2+V from 07/12/2019 FINDINGS: MEDIASTINUM: Normal. HEART: Normal. PULMONARY VASCULATURE: Normal. LUNGS: Mild underlying fibrotic changes. Hazy increased ground-glass opacities seen in the mid left lung laterally. No focal consolidation PLEURAL SPACE: No pleural effusion or pneumothorax. BONE:Unremarkable for age. IMPRESSION: Left-sided ground-glass infiltrates compatible with COVID- 19 pneumonia. DATA REPOSITORY: RADIATION DOSE DELIVERED:
== END 2021-05-01 11:04 ==
PROVIDERS: PCP Family Medicine; Visit Provider General Practice
DX: R06.00 Dyspnea, unspecified (principal); U09.9 Post COVID-19 condition, unspecified; J17 Pneumonia in diseases classified elsewhere
CPT/HCPCS: 71046

== ENCOUNTER → 2021-10-03 02:24 | Outpatient (CLI) | payer MEDICARE, SELFPAY ==
--- NOTE | 2021-10-03 07:57 | DI.MAMMO_ITS ---
Exam(s) MAMMO SCREENING EXAM: MAMMO SCREENING CLINICAL HISTORY: screening, Z12.39 TECHNIQUE: Bilateral full field digital CC and MLO mammographic images were obtained with 3D tomosyn thesis and utilizing computer aided detection (CAD). COMPARISON: Available for comparison. FINDINGS: Masses/Architectural Distortion: None seen. Microcalcifications: No suspicious pleomorphic-type are seen. Skin Thickening/Nipple Retraction: None. IMPRESSION: 1. No significant interval change with no specific features of malignancy noted. 2. Unless there is more urgent need, screening mammography is recommended, as per [employer] guidelines. BI-RADS Category 1 - Negative Breast Density - Category C - Heterogeneously dense Breast density category C or D implies that the patient has dense breast tissue. Dense breast tissue is very common and is not abnormal but dense breast tissue can make it harder to find cancer on a ma mmogram. Also, dense breast tissue may increase their breast cancer risk. This information about the result of the mammogram report was provided to the patient to raise their awareness. Use this report when you speak with the patient about their risks for breast cancer, which includes their family hist ory. At that time, you may recommend for more screening tests (Ultrasound or MRI) as they might be us eful based on their risk. A negative radiographic report should not delay biopsy if a dominant or clinically suspicious mass is present. Up to ten percent of cancers are not identified on mammography. A negative report may reinforce clinical impression. Adenosis and dense breasts may obscure an underlying neoplasm. False positive reports average 6 to 10%. Patient will receive a letter notifying them of these results.
== END ==
PROVIDERS: PCP Family Medicine; Visit Provider Family Medicine
DX: Z12.31 Encounter for screening mammogram for malignant neoplasm of breast (principal); R92.8 Other abnormal and inconclusive findings on diagnostic imaging of breast
CPT/HCPCS: 77063; 77067

== ENCOUNTER 2021-12-09 10:10 | Outpatient (CLI) | payer MEDICARE, SELFPAY ==
[2021-12-09 08:47] LABS: Calculated LDL 195 mg/dL (<100); Cholesterol 268 mg/dL (<200); HDL Cholesterol 55 mg/dL (40-60); Triglyceride 90 mg/dL (<150)
== END 2021-12-09 10:11 | disposition home or self-care (01) ==
LOC: LBO 10:17
PROVIDERS: PCP Family Medicine; Visit Provider Family Medicine
DX: E78.00 Pure hypercholesterolemia, unspecified (principal)
CPT/HCPCS: 36415; 80061

== ENCOUNTER 2022-10-10 00:38 | Outpatient (CLI) | payer MEDICARE, SELFPAY ==
--- NOTE | 2022-10-10 07:00 | DI.RAD_ITS ---
Exam(s) XR HIP LT COMPLETE AP PELVIS EXAM: XR HIP LT COMPLETE AP PELVIS CLINICAL HISTORY: l hip pain, chronic, M25.552, G89.29. TECHNIQUE: 2D digital imaging was performed. COMPARISON: No exams were available for comparison FINDINGS: Two views. No evidence of pelvic nor hip fracture nor degenerative changes in the hips. Additional lateral view of the left hip does not reveal joint space narrowing nor osteophytes. Bone density is normal. No osseous lesions . IMPRESSION: No significant osseous findings. DATA REPOSITORY: RADIATION DOSE DELIVERED:
== END 2022-10-10 00:58 ==
LOC: DI 00:39
PROVIDERS: PCP Family Medicine; Visit Provider Family Medicine
DX: G89.29 Other chronic pain (principal); M25.552 Pain in left hip
CPT/HCPCS: 73502

== ENCOUNTER 2022-11-13 12:23 | Outpatient (REF) | payer MEDICARE, SELFPAY ==
--- NOTE | 2022-11-13 12:00 | SKI_PTH ---
PATIENT: Bouchra Lockett LOC: [facility] U#:[id number] AGE/SX: 72/F ROOM: RE11/13/[address]: Stephanie House MD, DC : 1950 BED: DIS: 11/13/2022 SPEC #: [id number] RECD: 11/14/22 11:44 STATUS: MARIELLE REQ #: [id number] ODESSA: 11/13/22 12:[address]: Stephanie House DEPT: Surgical Specimen RECD BY: Nedra Valencia Tissues: 1 - SKIN BIOPSY(SHAVE/PUNCH) Procedures: SKIN LEVEL 4 Comments: [id number]
== END 2022-11-13 12:24 | disposition home or self-care (01) ==
LOC: LBN 12:23
PROVIDERS: PCP Family Medicine; Visit Provider Family Medicine
DX: L82.1 Other seborrheic keratosis (principal)
CPT/HCPCS: 88305

== ENCOUNTER 2023-11-16 02:04 | Outpatient (CLI) | payer MEDICARE, SELFPAY ==
[2023-11-16] MEDS: Inhaler, Assist Device 1 EACH MC (14:36)
[2023-11-16] MEDS: Levalbuterol HFA 15 GM INH 4 PUFF IH (14:36)
--- NOTE | 2023-11-17 12:21 | W.PFT ---
Date of service: 11/17/23 Time of Service: 12:25 Pulmonary Function Test Result Requesting Provider Stephanie House Indications: Possible asthma, cough, former less than half pack year smoker, seasonal allergies. Interpretation Spirometry: Spirometry pre and postbronchodilator showed: 1. No evidence of airway obstruction 2. No response to bronchodilator 3. The transmission technician comments indicated a good patient effort 4. Current medications Flovent and albuterol, neither taken before the test. Lung Volumes: Lung volume studies by plethysmography were normal. There was no evidence of restriction or hyperinflation. Diffusion Capacity: Diffusion capacity by single breath carbon monoxide technique was normal. No evidence of gas exchange abnormality. Impression Normal pulmonary function tests. If further evaluation of possible airway reactivity as clinically indicated, methacholine challenge testing is recommended. Clinical Correlation therefore is recommended.
== END 2023-11-16 02:05 | disposition home or self-care (01) ==
PROVIDERS: PCP Family Medicine; Visit Provider Family Medicine
DX: R05.9 Cough, unspecified (principal); J30.2 Other seasonal allergic rhinitis; Z87.891 Personal history of nicotine dependence
CPT/HCPCS: 00123; 94060; 94726; 94729

== ENCOUNTER 2023-11-18 03:44 | Outpatient (CLI) | payer MEDICARE, SELFPAY ==
[2023-11-18 07:43] LABS: ALT 30 U/L (14-59); AST 26 U/L (15-37); Albumin 3.6 g/dL (3.4-5.0); Alkaline Phosphatase 78 U/L (46-116); Anion Gap 6.1 mmol/L (3-11); BUN 12 mg/dL (7-18); Bilirubin, Total 0.52 mg/dL (0.2-1.0); CO2 29.9 mmol/L (21.0-32.0); CREATININE 0.9 mg/dL (0.55-1.02); Calcium 9.2 mg/dL (8.5-10.1); Calculated LDL 141 mg/dL (<100); Chloride 104 mmol/L (98-107); Cholesterol 236 mg/dL (<200); Estimated GFR 68.35 (mL/min/1.73m2); Glucose 93 mg/dL (74-106); HDL Cholesterol 70 mg/dL (40-60); Potassium 4.1 mmol/L (3.5-5.1); Sodium 140 mmol/L (136-145); Total Protein 7.4 g/dL (6.4-8.2); Triglyceride 128 mg/dL (<150)
[2023-11-18 10:59] LABS: Hemoglobin A1C 5.7 % (<5.7)
[2023-11-18 19:26] LABS: Hepatitis C Ab w Rflx HCV PCR Negative (Negative)
== END 2023-11-18 03:45 | disposition home or self-care (01) ==
PROVIDERS: PCP Family Medicine; Referring Provider Family Medicine; Visit Provider Family Medicine
DX: I10 Essential (primary) hypertension (principal); E11.9 Type 2 diabetes mellitus without complications; Z11.59 Encounter for screening for other viral diseases
CPT/HCPCS: 36415; 80053; 80061; 86803; 83036

== ENCOUNTER 2023-11-25 02:15 | Outpatient (CLI) | payer MEDICARE, SELFPAY ==
--- NOTE | 2023-11-25 06:45 | DI.MAMMO_ITS ---
Exam(s) MAMMO SCREENING EXAM: MAMMO SCREENING CLINICAL HISTORY: screening,z12.39. TECHNIQUE: Bilateral full field digital CC and MLO mammographic images were obtained with 3D tomosyn thesis and utilizing computer aided detection (CAD). COMPARISON: Prior mammograms were reviewed. FINDINGS: There has been no significant change in the appearance and distribution of the fibroglandular tissue. There are no new spiculated masses nor malignant appearing microcalcification groups. There is no significant architectural distortion nor skin thickening-retraction. IMPRESSION: No radiographic evidence of malignancy. BI-RADS Category 1 - Negative Breast Density - Category C - Heterogeneously dense Breast density Category C or D implies that the patient has dense breast tissue. Dense breast tissue can make it harder to find cancer on a mammogram. Dense breast tissue is also associated with an incr eased risk of breast cancer. This information about the result of the mammogram report was provided to the patient to raise their awareness. Use this report when you speak with the patient about their risks for breast cancer, which includes their family history. At that time, you may recommend additional screening tests (Ultrasoun d or MRI) as these tests may add significant information. A negative radiographic report should not delay biopsy if a dominant or clinically suspicious mass is present. Up to ten percent of cancers are not identified on mammography. A negative report may reinforce clinical impression. Adenosis and dense breasts may obscure an underlying neoplasm. False positive reports average 6 to 10%. Patient will receive a letter notifying them of these results.
== END 2023-11-25 02:35 ==
LOC: DI 02:16
PROVIDERS: PCP Family Medicine; Visit Provider Family Medicine
DX: Z12.31 Encounter for screening mammogram for malignant neoplasm of breast (principal)
CPT/HCPCS: 77063; 77067

== ENCOUNTER 2023-12-03 02:22 | Outpatient (CLI) | payer MEDICARE, SELFPAY ==
--- NOTE | 2023-12-03 07:00 | DI.DEXA_ITS ---
Exam(s) XR DEXA BONE DENSITY W/WO HEIDI EXAM: XR DEXA BONE DENSITY W/WO HEIDI CLINICAL HISTORY: h/o osteopenia,menopausal disorder,n95.9 TECHNIQUE: COMPARISON: CR XR DEXA BONE DENSITY W/WO HEIDI from 09/20/2019 FINDINGS: Lateral Spine Image: Unremarkable. No compression deformities identified. Left hip: Total T-Score: -1.8. This compares to -2.1 on the prior examination. Total Z-Score: -0.2 T- and Z-scores: Findings are consistent with osteopenia. Lumbar Spine: Total T-Score: -2.5. This compares to -1.9 on the prior examination. Total Z-Score: -0.3 T- and Z-scores: Findings are consistent with osteoporosis. Left forearm: Total T-score:-3.5. This compares to minus -3.4 on the prior examination. Total Z-score:-1.4 T and Z-score is: Findings consistent with osteoporosis. IMPRESSION: Osteoporosis in the lumbar spine and left forearm.
== END 2023-12-03 02:42 ==
LOC: DI 02:22
PROVIDERS: PCP Family Medicine; Visit Provider Family Medicine
DX: M81.0 Age-related osteoporosis without current pathological fracture (principal)
CPT/HCPCS: 77080

== ENCOUNTER 2023-12-16 00:50 | Outpatient (CLI) | payer MEDICARE, SELFPAY ==
--- NOTE | 2023-12-16 06:30 | DI.CT_ITS ---
Exam(s) CT LOWER EXTREMITY RT WO EXAM: CT LOWER EXTREMITY RT WO CLINICAL HISTORY: Right knee pain after fall,M25.561. TECHNIQUE: Imaging Protocol: Axial computed tomography images with coronal and sagittal reformatted images were created and reviewed. CONTRAST MATERIAL: Intravenous: None COMPARISON: No exams were available for comparison FINDINGS: OSSEOUS: There is no evidence of fracture in the knee. The tibial plateau is. Patella appears unremarkable f emoral condyles and fibular head and neck. There is also no evidence of obvious knee joint effusion. No significant osseous lesions evident. SOFT TISSUES: No masses. No abnormal collections. No radiopaque foreign bodies. IMPRESSION: No evidence of fracture of the knee. No obvious joint effusion RADIATION DOSE DELIVERED: 124.49mGy.cm Total DLP DATA REPOSITORY: All CT scans at this facility are submitted to the National Radiology Data Registry (NRDR) Dose Index Registry (DIR) with the [employer] (ACR). RADIATION OPTIMIZATION: All CT scans at this facility use at least one of these dose optimization te chniques: automated exposure control; mA and/or kV adjustment per patient size (includes targeted exa ms where dose is matched to clinical indication); or iterative reconstruction.
== END 2023-12-16 01:10 ==
LOC: DI 00:51
PROVIDERS: PCP Family Medicine; Visit Provider Nurse Practitioner Family
DX: M25.561 Pain in right knee (principal)
CPT/HCPCS: 73700

== ENCOUNTER 2024-06-10 09:05 | Outpatient (CLI) | payer MEDICARE, SELFPAY ==
--- NOTE | 2024-06-10 09:25 | DI.RAD_ITS ---
Exam(s) XR KNEE LT 3V AP,LAT,NIKHIL EXAM: XR KNEE LT 3V AP,LAT,NIKHIL CLINICAL HISTORY: Fall with injury, LT KNEE INJURY, S89.92XA. TECHNIQUE: 2D digital imaging was performed of the left knee. Three images were obtained. AP, late ral and PA tunnel views were obtained. COMPARISON: CR RIGHT KNEE LIMITED 1 OR 2 VIEW from 12/01/2008 FINDINGS: BONES: There is a nondisplaced fracture involving the inferior pole of the patella. No bony destruc tive lesion is seen. 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 JOINTS: The knee is normally aligned. There does appear to be a small joint effusion. No loose body. SOFT TISSUE: There is soft tissue swelling anterior to the patella. IMPRESSION: Nondisplaced transverse fracture through the inferior pole of the left patella. Unexpected findings DATA REPOSITORY: RADIATION DOSE DELIVERED:
--- NOTE | 2024-06-10 09:26 | DI.RAD_ITS ---
Exam(s) XR ANKLE RT COMPLETE EXAM: XR ANKLE RT COMPLETE CLINICAL HISTORY: Fall with injury, RT ANKLE INJURY, S99.911A. TECHNIQUE: 2D digital imaging was performed. COMPARISON: No exams were available for comparison FINDINGS: 3 views No evidence of fracture or widening the ankle mortise. Talar dome unremarkable. Bone density is age -appropriate. No osseous lesions. No degenerative changes in the tibiotalar and subtalar joints. IMPRESSION: No acute osseous findings in the ankle. DATA REPOSITORY: RADIATION DOSE DELIVERED:
== END 2024-06-10 09:25 ==
LOC: DI 09:06
PROVIDERS: PCP Family Medicine; Visit Provider Nurse Practitioner Family
DX: S82.035D Nondisplaced transverse fracture of left patella, subsequent encounter for closed fracture with routine healing (principal); S99.911A Unspecified injury of right ankle, initial encounter; X58.XXXA Exposure to other specified factors, initial encounter
CPT/HCPCS: 73562; 73610

== ENCOUNTER → 2024-06-13 08:29 | Outpatient (BNVA) | payer MEDICARE, SELFPAY | PROVIDERS: PCP Family Medicine; Referring Provider Family Medicine; Visit Provider Student in an Organized Health Care Education/Training Program | DX: S82.002A Unspecified fracture of left patella, initial encounter for closed fracture (principal); X58.XXXA Exposure to other specified factors, initial encounter | CPT/HCPCS: 99203 ==

== ENCOUNTER 2024-06-27 11:22 | Outpatient (CLI) | payer MEDICARE, SELFPAY ==
--- NOTE | 2024-06-27 08:45 | DI.RAD_ITS ---
Exam(s) XR KNEE LT 2V AP,LAT EXAM: XR KNEE LT 2V AP,LAT CLINICAL HISTORY: LEFT KNEE INJURY. TECHNIQUE: 2D digital imaging was performed of the left knee. Three images were obtained. AP, late ral and PA tunnel views were obtained. COMPARISON: CR XR KNEE LT 3V AP,LAT,NIKHIL from 06/10/2024 FINDINGS: BONES: There is no change in alignment of the nondisplaced fracture involving the patella. Incident al note is again made of an osteochondroma in the distal femur. No bony destructive lesion is seen. JOINTS: The knee is normally aligned. There is a small joint effusion. No loose body. SOFT TISSUE: Mild soft tissue swelling is seen anterior to the patella. IMPRESSION: Stable alignment of the patellar fracture. DATA REPOSITORY: RADIATION DOSE DELIVERED:
== END 2024-06-27 11:23 | disposition home or self-care (01) ==
LOC: DIORS 11:22
PROVIDERS: PCP Family Medicine; Referring Provider Family Medicine; Visit Provider Physician Assistant
DX: S82.002D Unspecified fracture of left patella, subsequent encounter for closed fracture with routine healing; X58.XXXD Exposure to other specified factors, subsequent encounter
CPT/HCPCS: 99213; 73560

== ENCOUNTER 2024-07-18 15:45 | Outpatient (CLI) | payer MEDICARE, SELFPAY ==
--- NOTE | 2024-07-18 14:45 | DI.RAD_ITS ---
Exam(s) XR KNEE LT 2V AP,LAT EXAM: XR KNEE LT 2V AP,LAT CLINICAL HISTORY: L PATELLA FX. TECHNIQUE: 2D digital imaging was performed of the left knee. Two images were obtained. AP and lat eral views were obtained. COMPARISON: CR XR KNEE LT 2V AP,LAT from 06/27/2024 FINDINGS: BONES: The inferior patellar fracture appears well healed. No new fractures identified. No bony de structive lesion is seen. There is a stable osteochondroma in the distal femur. JOINTS: The knee is normally aligned. No joint effusion is seen. No loose body. SOFT TISSUE: Normal. IMPRESSION: Interval healing of the left patellar fracture. DATA REPOSITORY: RADIATION DOSE DELIVERED:
== END 2024-07-18 15:46 | disposition home or self-care (01) ==
LOC: DIORS 15:46
PROVIDERS: PCP Family Medicine; Referring Provider Family Medicine; Visit Provider Student in an Organized Health Care Education/Training Program
DX: S82.002D Unspecified fracture of left patella, subsequent encounter for closed fracture with routine healing; X58.XXXD Exposure to other specified factors, subsequent encounter
CPT/HCPCS: 99213; 73560

== ENCOUNTER 2024-08-29 14:46 | Outpatient (CLI) | payer MEDICARE, SELFPAY ==
--- NOTE | 2024-08-29 14:57 | DI.RAD_ITS ---
Exam(s) XR KNEE LT 2V AP,LAT EXAM: XR KNEE LT 2V AP,LAT CLINICAL HISTORY: L PATELLA FX. TECHNIQUE: 2D digital imaging was performed of the left knee. Two images were obtained. Merchant,AP, lateral and PA tunnel views were obtained. COMPARISON: CR XR KNEE LT 3V AP,LAT,NIKHIL from 06/10/2024 CR XR KNEE LT 2V AP,LAT from 07/18/2024 FINDINGS: BONES: The patellar fracture appears well healed. No new fractures identified. No bony destructive lesion is seen. Incidental note is again made of an osteochondroma arising from the distal femur. JOINTS: The knee is normally aligned. No joint effusion is seen. No loose body. SOFT TISSUE: Normal. IMPRESSION: No acute abnormality. DATA REPOSITORY: RADIATION DOSE DELIVERED:
== END 2024-08-29 14:47 | disposition home or self-care (01) ==
LOC: DIORS 14:47
PROVIDERS: PCP Family Medicine; Referring Provider Family Medicine; Visit Provider Student in an Organized Health Care Education/Training Program
DX: S82.002D Unspecified fracture of left patella, subsequent encounter for closed fracture with routine healing (principal); X58.XXXD Exposure to other specified factors, subsequent encounter
CPT/HCPCS: 99212; 73560

== ENCOUNTER 2024-12-13 01:14 | Outpatient (CLI) | payer MEDICARE, SELFPAY ==
--- NOTE | 2024-12-13 08:16 | DI.MAMMO_ITS ---
Exam(s) MAMMO SCREENING EXAM: MAMMO SCREENING CLINICAL HISTORY: screening,z12.39 TECHNIQUE: Bilateral full field digital CC and MLO mammographic images were obtained with 3D tomosynthesis and utilizing computer aided detection (CAD). COMPARISON: Comparison is made with prior examinations. FINDINGS: Masses/Architectural Distortion: No suspicious masses or areas of architectural distortion are present. Microcalcifications: No suspicious pleomorphic-type are seen. Skin Thickening/Nipple Retraction: None. IMPRESSION: 1. No significant interval change with no specific features of malignancy noted. 2. Unless there is more urgent need, screening mammography is recommended, as per [employer] guidelines. BI-RADS Category 1 - Negative Breast Density - Category C - The breast are heterogeneously dense, which may obscure small masses. Breast density Category C or D implies that the patient has dense breast tissue. Dense breast tissue can make it harder to find cancer on a mammogram. Dense breast tissue is also associated with an increased risk of breast cancer. This information about the result of the mammogram report was provided to the patient to raise their awareness. Use this report when you speak with the patient about their risks for breast cancer, which includes their family history. At that time, you may recommend additional screening tests (Ultrasound or MRI) as these tests may add significant information. A negative radiographic report should not delay biopsy if a dominant or clinically suspicious mass is present. Up to ten percent of cancers are not identified on mammography. A negative report may reinforce clinical impression. Adenosis and dense breasts may obscure an underlying neoplasm. False positive reports average 6 to 10%. Patient will receive a letter notifying them of these results.
== END 2024-12-13 01:34 ==
LOC: DI 01:14
PROVIDERS: PCP Family Medicine; Visit Provider Family Medicine
DX: Z12.31 Encounter for screening mammogram for malignant neoplasm of breast (principal)
CPT/HCPCS: 77063; 77067

== ENCOUNTER 2024-12-16 03:00 | Outpatient (CLI) | payer MEDICARE, SELFPAY ==
[2024-12-16 08:03] LABS: Calculated LDL 174 mg/dL (<100); Cholesterol 251 mg/dL (<200); HDL Cholesterol 59 mg/dL (>or=50); Triglyceride 94 mg/dL (<150); Vitamin D 25 Total 57 ng/mL (30-100)
== END 2024-12-16 03:01 | disposition home or self-care (01) ==
LOC: LBO 03:00
PROVIDERS: PCP Family Medicine; Visit Provider Family Medicine
DX: E78.00 Pure hypercholesterolemia, unspecified (principal); M85.80 Other specified disorders of bone density and structure, unspecified site
CPT/HCPCS: 36415; 80061; 82306; 83090

== ENCOUNTER → 2025-02-22 00:06 | Outpatient (CLI) | payer MEDICARE, SELFPAY ==
--- NOTE | 2025-02-22 | DI.US_ITS ---
Exam(s) US CAROTID EXAM: US CAROTID CLINICAL HISTORY: SIGNS SYMPTOMS INVOLVING CIRCULATORY RESPIRATORY SYSTEM R09.89. TECHNIQUE: Ultrasound carotids performed using grayscale, color-flow, and spectral Doppler imaging. COMPARISON: No exams were available for comparison FINDINGS: RIGHT CAROTID ARTERY: Plaque: Mild calcific plaque at the bulb and proximal internal carotid artery Velocity elevation: None. LEFT CAROTID ARTERY: Plaque: Focus of calcific plaque at the proximal internal carotid artery. Velocity elevation: None. VERTEBRAL ARTERIES: Antegrade flow. Measurements: R Bulb: 72.2cm/s PS / 24.3cm/s ED R CCA: 87.3cm/s PS / 25cm/s ED R ECA: 62.8cm/s PS / 9.3cm/s ED R ICA Prox: 84.2cm/s PS / 32.5cm/s ED R ICA Mid: 82cm/s PS / 31.3cm/s ED R ICA Distal: 75.1cm/s PS /24.6cm/s ED R Vert: 60cm/s PS / 18.7cm/s ED R SVR: 1 R DVR: 1.3 L Bulb: 77.3cm/s PS / 30.3cm/s ED L CCA: 79.6cm/s PS / 25.5cm/s ED L ECA: 81.3cm/s PS / 15.6cm/s ED L ICA Prox: 96.5cm/s PS / 37.5cm/s ED L ICA Mid: 76.8cm/s PS / 29.8cm/s ED L ICA Distal: 59cm/s PS / 22.2cm/s ED L Vert: 36.4cm/s PS / 13.7cm/s ED L SVR: 1.2 L DVR: 1.5 IMPRESSION: No evidence for hemodynamically significant carotid stenosis. Criteria for Carotid Stenosis: Normal: ICA PSV <125 cm/s no plaque or intimal thickening is visible. <50% stenosis: ICA PSV <125 cm/s and plaque or intimal thickening is visible. 50-69% stenosis: ICA PSV is 125-250 cm/s and plaque is visible. >70% stenosis to near occlusion: ICA PSV >250 cm/s with visible plaque and luminal narrowing. DATA REPOSITORY:
== END ==
LOC: DI 00:06
PROVIDERS: PCP Family Medicine; Visit Provider Physician Assistant
DX: R09.89 Other specified symptoms and signs involving the circulatory and respiratory systems (principal)
CPT/HCPCS: 93880